=== PATIENT | female | born 1995 | race Caucasian/White ===

== ENCOUNTER 2017-04-01 18:53 | Emergency (ER) | payer OTHER ==
[~2017-04-01] VITALS: Ht 157.5 cm; Wt 93.0 kg
[2017-04-01 18:57] VITALS: Ht 157.5 cm; Wt 93.0 kg
--- NOTE | 2017-04-01 21:29 | ERD ---
ER Documentation Chief Complaint Date/Time DATE: 04/01/17 TIME: 21:23 Chief Complaint c/o rash to face and abd x 4 days. denies sob. 20 weeks . HPI 21 year old females presents to ED with CC of constant erythematous facial rash x 4 days, she states that she is 20 weeks . She reports associated pruritis. She denies any abdominal pain, pelvic pain, N/V, vaginal bleeding, SOB , facial/throat swelling, and difficulty swallowing. She states that rash began gradual and she denies no use of new topical products, medications or foods. She has no known allergies. She has not tried any medications for relief of Sx. No aggrevating or alleviating factors. ROS All systems reviewed and are negative except as per history of present illness. Medications Home Meds Active Scripts Diphenhydramine Hcl* (Benadryl*) 25 Mg Cap, 25 MG PO Q6, #30 CAP Prov:Mary Rowe PA-C 04/01/17 Hydrocortisone* Topical (Hydrocortisone* Topical) 1%-28.35 Gm Cream..g., 1 APPLIC TOP Q6 Y for ITCHING, #1 TUB Prov:Mary Rowe PA-C 04/01/17 PMhx/Soc Medical and Surgical Hx: pt denies Medical Hx, pt denies Surgical Hx Hx Psychiatric Problems: No Hx Miscellaneous Medical Probl: No Hx Alcohol Use: No Hx Substance Use: No Hx Tobacco Use: No Smoking Status: Never smoker Physical Exam Vitals Vital Signs Date Time Temp Pulse Resp B/P Pulse Ox O2 Delivery O2 Flow Rate FiO2 04/01/17 18:57 99.2 111 18 131/66 96 Physical Exam GENERAL: Non-toxic. No apparent signs of distress. HEENT: Atraumatic. Bilateral eyes are PERRL EOM intact. Normal conjunctiva, no injection. No eyelid or lower eyelid swelling noted. Ears: Normal tympanic membrane, no erythema or bulging. No ear canal swelling. No ear discharge. Nose : no nasal discharge. Throat: Oropharynx normal. Tongue pink and moist. Bilateral tonsillar erythema and edema, with no exudate. Uvula is midline. No drooling, no pooling of secretions, no trismus. No lymphadenopathy. LUNGS: Clear to auscultation. No accessory muscle use. No wheezing, no crackles. No signs or symptoms of respiratory distress. HEART: Regular rate and rhythm. No murmurs, clicks, rubs or gallops. ABDOMEN: Soft, nontender and nondistended. Bowel sounds positive. No rebound or guarding. No gross peritoneal signs. No [place] or McBurney point tenderness. No gross masses. BACK: No midline tenderness, no costovertebral tenderness. EXTREMITIES: No peripheral cyanosis or edema. No focal pain or notable trauma. Full range of motion. Good capillary refill. NEURO: The patient moves all 4 extremities with 5/5 strength. Cranial nerves are grossly intact. Normal mental status for age. Good muscle tone. SKIN: There is no apparent rash, petechiae, erythema or swelling. Good skin turgor. GENERAL: Non-toxic. No apparent signs of distress. Result Diagram: 04/01/17220504/01/172205 Results 24 hrs Laboratory Tests Test 04/01/17 22:06 White Blood Count 15.110^3/ul Red Blood Count 4.1410^6/ul Hemoglobin 11.5g/dl Hematocrit 34.7% Mean Corpuscular Volume 83.8fl Mean Corpuscular Hemoglobin 27.8pg Mean Corpuscular Hemoglobin Concent 33.1g/dl Red Cell Distribution Width 12.7% Platelet Count 65881^3/UL Mean Platelet Volume 11.0fl Neutrophils % 75.1% Lymphocytes % 17.2% Monocytes % 4.2% Eosinophils % 2.1% Basophils % 0.3% Nucleated Red Blood Cells % 0.0/100WBC Neutrophils # 11.410^3/ul Lymphocytes # 2.610^3/ul Monocytes # 0.610^3/ul Eosinophils # 0.310^3/ul Basophils # 0.010^3/ul Nucleated Red Blood Cells # 0.010^3/ul Sodium Level 134mmol/L Potassium Level 4.1mmol/L Chloride Level 101mmol/L Carbon Dioxide Level 24mmol/L Anion Gap 13 Blood Urea Nitrogen 3mg/dl Creatinine 0.44mg/dl Glucose Level 90mg/dl Calcium Level 9.4mg/dl Total Bilirubin 0.2mg/dl Direct Bilirubin 0.00mg/dl Indirect Bilirubin 0.2mg/dl Aspartate Amino Transf (AST/SGOT) 12IU/L Alanine Aminotransferase (ALT/SGPT) 18IU/L Alkaline Phosphatase 149IU/L Total Protein 7.6g/dl Albumin 4.1g/dl Globulin 3.50g/dl Albumin/Globulin Ratio 1.17 Lipase 63U/L Procedures/MDM Patient presented with erythematous rash only to her face x 4 days. She denies any respiratory Sx, she had no facial swelling or swelling in the oropharynx. She did have bilateral tonsillar erythema and edema, but she denied sore throat and had no exudate. She denied use of any new medications or topical products. I explained to the patient that rash may be atopic dermatitis that has developed in response to her skin being irritated by a product she is using on her face. May also be due to photosensitivity and suggested use of sunblock. However I told her I wanted to rule out strep associated rash due to her tonsillar edema and wished to get labs to rule out cholestasis since patient is in her second trimester and at higher risk for this. Patient agreed to plan, awaiting results prior to further management. Rapid Strep: negative CBC: leukocytosis and mild anemia likely due to related changes CMP: no severe electrolyte imbalance, normal kidney function, ALT and AST is normal but ALP is slightly elevated which is normal in as related to placenta growth. I explained the results to the patient, it is reassuring that her bilirubin is WNL, as well as her AST and ALT. ALP is mildly elevated which may be normal in . These results do not suggest cholestasis at this time. However I suggested close follow-up with her OBGYN in 1-2 days. I suggested short term use of 1% hydrocortisone, and avoid areas close to the eyes or mouth. In addition I suggested use of benadryl for the pruritus which is safe to use during . At this time I have low suspicion for cholestasis, anaphylaxis , angioedema, scabies, varicella, SJS, scarlet fever and cellulitis. Patient is stable for discharge home and outpatient management. Advised to follow-up with OBGYN in 1-2 days. Departure Diagnosis: Primary Impression: Rash Condition: Mary Alcantar PA-C April 01, 2017 21:29
[2017-04-01 22:24] LABS: ADD SCAN DIFF NO
[2017-04-01 22:25] LABS: BASOPHILS % 0.3 % (0.0-2.0); EOSINOPHILS # 0.3 10^3/ul (0.0-0.5); EOSINOPHILS % 2.1 % (0.0-7.0); HEMATOCRIT 34.7 % (37.0-47.0); HEMOGLOBIN 11.5 g/dl (12.0-16.0); LYMPHOCYTES # 2.6 10^3/ul (0.8-2.9); LYMPHOCYTES % 17.2 % (15.0-51.0); MEAN CORPUSCULAR HEMOGLOBIN 27.8 pg (29.0-33.0); MEAN CORPUSCULAR HGB CONC 33.1 g/dl (32.0-37.0); MEAN CORPUSCULAR VOLUME 83.8 fl (82.0-101.0); MONOCYTE # 0.6 10^3/ul (0.3-0.9); MONOCYTES % 4.2 % (0.0-11.0); NEUTROPHIL # 11.4 10^3/ul (1.6-7.5); NEUTROPHILS % 75.1 % (39.0-77.0); PLATELET COUNT 369 10^3/UL (140-415); RED BLOOD COUNT 4.14 10^6/ul (4.20-5.40); RED CELL DISTRIBUTION WIDTH 12.7 % (11.5-14.5); WHITE BLOOD COUNT 15.1 10^3/ul (4.8-10.8)
[2017-04-01 22:46] LABS: ALBUMIN 4.1 g/dl (3.3-4.9); ALBUMIN/GLOBULIN RATIO 1.17; BILIRUBIN,INDIRECT 0.2 mg/dl (0-1.1); BILIRUBIN,TOTAL 0.2 mg/dl (0.2-1.3); CALCIUM 9.4 mg/dl (8.4-10.2); CREATININE 0.44 mg/dl (0.44-1.00); POTASSIUM 4.1 mmol/L (3.5-5.1); TOTAL PROTEIN 7.6 g/dl (6.1-8.1)
[2017-04-01] MEDS ORDERED: HC1C30 TOP (23:03)
[2017-04-01] MEDS ORDERED: BEN25 PO (23:03)
== END 2017-04-01 23:26 | disposition home or self-care (01) ==
LOC: FTE 18:53
DX: O99.89 Other specified diseases and conditions complicating pregnancy, childbirth and the puerperium (principal); R21 Rash and other nonspecific skin eruption; Z3A.20 20 weeks gestation of pregnancy
CPT/HCPCS: 36415; 80053; 83690; 85025; 87880; 99283

== ENCOUNTER 2017-07-24 19:19 | Outpatient (CLI) | payer OTHER ==
[~2017-07-24] VITALS: Ht 160 cm; Wt 76.4 kg
[~2017-07-24 19:19] MED LIST: BEN25 PO; HC1C30 TOP
[2017-07-24 19:46] VITALS: BP 103/59; PULSE 87; RESP 18
[2017-07-24] MEDS ORDERED: PRENAT PO (19:49)
[2017-07-24 20:15] LABS: ADD UMIC YES; UR ASCORBIC ACID NEGATIVE (NEGATIVE); UR BILIRUBIN (Dip) NEGATIVE (NEGATIVE); UR BLOOD (Dip) NEGATIVE (NEGATIVE); UR CLARITY CLOUDY (CLEAR); UR COLOR YELLOW (YELLOW); UR GLUCOSE (Dip) NEGATIVE (NEGATIVE); UR KETONES (Dip) NEGATIVE (NEGATIVE); UR LEUKOCYTE ESTERASE (Dip) 3+ Leu/ul (NEGATIVE); UR NITRITE (Dip) NEGATIVE (NEGATIVE); UR RBC 4 /HPF (0-5); UR SPECIFIC GRAVITY (Dip) 1.008 (1.003-1.030); UR SQUAMOUS EPITHELIAL CELL MODERATE /HPF (FEW); UR TOTAL PROTEIN (Dip) NEGATIVE (NEGATIVE); UR UROBILINOGEN (Dip) NEGATIVE (NEGATIVE)
--- NOTE | 2017-07-24 21:08 | RADRPT ---
PROCEDURE: Obstetrical ultrasound greater than 14 weeks CLINICAL INDICATION: labor TECHNIQUE: Real time sonographic imaging of the gravid uterus is performed transabdominally and mu ltiple static velazco scale and Doppler images are submitted for review as are measurements. The image s are reviewed on the PACS. COMPARISON: No relevant exams are available FINDINGS: There is a single living intrauterine gestation in cephalic presentation. The heart beat is estimated at 126 bpm. The measurements are as follows: BPD:9.09 cm HC:32.48 cm AC:32.57 cm FL:6.84 cm Estimated gestational age is 36 weeks 2 days. The estimated date of delivery is 08/19/2017. The estimated weight is 2880 grams. Placenta is left lateral and grade2. There is no evidence of placenta previa or abruption. RPTAT:HJJR IMPRESSION: 1. Single viable intrauterine gestation in cephalic presentation estimated at 36 weeks 2 days with t he estimated date of delivery 08/19/2017. 2. Estimated weight 2880 g. Physician Yvette Date Time Electronically viewed and signed by Physician Yvette on 07/24/2017 21:08 JR/
--- NOTE | 2017-07-24 21:15 | RADRPT ---
PROCEDURE: Obstetrical ultrasound for biophysical profile CLINICAL INDICATION: Biophysical profile. . TECHNIQUE: Obstetrical ultrasound of the uterus for biophysical profile. Transabdominal views are obtained. COMPARISON: 04/09/2017 FINDINGS: Single intrauterine gestation. Presentation: Cephalic. Placenta: Posterior - left lateral No evidence of placental abruption. No evidence of placenta previa. breathing movement = 2/2 tone = 2/2 motion = 2/2 YESSICA = 2/2 YESSICA = 17.0 cm heart rate: 135 beats per minute IMPRESSION: Single intrauterine gestation. Biophysical profile 07/02 RPTAT: AADD .Kirk Galdamez MD, MD Date Time Electronically viewed and signed by .Kirk Galdamez MD, on 07/24/2017 21:15 .B/
--- NOTE | 2017-07-24 22:48 | TRIAGE ---
OB Triage Datetime Report Generated by CPN: 07/24/2017 22:48 Datetime: 07/24/2017 22:00 Stage of : OB Triage Datetime: 07/24/2017 21:56 Stage of : OB Triage Datetime: 07/24/2017 21:49 Stage of : OB Triage Monitor Mode: External Quality: Mild Pattern: Normal: <= 5 Contractions in 10 Minutes Resting Tone [place]: Relaxed Heart Rate FHR Baseline Rate: 145 Monitor Mode: External US Variability: Moderate 6-25 bpm Accelerations: 15X15 Decelerations: None Category: Category I Pain Assessment Pain Scale: 2 Pain Presence: Intermittent Pain Type: Cramping Pain Location: Abdomen Vaginal Exam Dilatation (cms): 1.0 Effacement (%): 50 Station: -3 Exam By: Nina Orosco Membrane Status: Intact Vaginal Bleeding: None Cervix, Consistency: Moderate Cervix, Position: Posterior Presentation 'A': Cephalic Datetime: 07/24/2017 20:58 Stage of : OB Triage Monitor Mode: External Quality: Mild Pattern: Normal: <= 5 Contractions in 10 Minutes Resting Tone [place]: Relaxed Heart Rate FHR Baseline Rate: 140 Monitor Mode: External US FHR Baseline Changes: No Baseline Change Variability: Moderate 6-25 bpm Accelerations: 15X15 Decelerations: None Category: Category I Datetime: 07/24/2017 20:07 Monitor Mode: External Quality: Mild Pattern: Normal: <= 5 Contractions in 10 Minutes Resting Tone [place]: Relaxed Heart Rate FHR Baseline Rate: 135 Monitor Mode: External US FHR Baseline Changes: No Baseline Change Variability: Moderate 6-25 bpm Accelerations: 15X15 Decelerations: None Category: Category I Datetime: 07/24/2017 19:40 Stage of : OB Triage Heart Rate FHR Baseline Rate: 135 Monitor Mode: External US FHR Baseline Changes: No Baseline Change Variability: Moderate 6-25 bpm Accelerations: 15X15 Decelerations: None Category: Category I Datetime: 07/24/2017 19:32 EGA: 35.3 Datetime: 07/24/2017 19:30 Time of Arrival: 07/24/2017 19:11 Arrived By: Wheelchair Arrived From: Home Chief Complaint: c/o ucs. States was 2cm at 1100 per u/s at clinic Movement: Present Contractions: Irregular Time Contractions Began: 07/24/2017 18:00 Contractions: q10 Rupture of Membranes: Denies Vaginal Bleeding: None Vaginal Discharge: Denies Recent Sexual Intercouse: Denies Abdominal Trauma: Not Applicable Patient Complaints: Contractions Time Provider Notified: 07/24/2017 19:40 Provider Notified: Dr Franklin Initial Plan: EF,.EFW,BPP,SVE,UA Datetime: 07/24/2017 19:27 Stage of : OB Triage Maternal Assessment Level of Consciousness: Fully Conscious Headache: Denies Blurred Vision: No Respiratory Effort: Unlabored Nausea/Vomiting: Denies RUQ Epigastric Pain: Denies Facial Edema: None Labor Evaluation Frequency: placed Monitor Mode: External Resting Tone [place]: Relaxed Heart Rate FHR Baseline Rate: 150 Monitor Mode: External US Pain Assessment Pain Scale: 6 Pain Presence: Intermittent Pain Type: Cramping Pain Location: Abdomen
--- NOTE | 2017-07-25 07:31 | HP ---
Date/Time of Note Date/Time of Note DATE: 07/25/17 TIME: 07:23 OB - History Hx of Present Free Text/Dictation Jul 25, 2017 : 2 Para: 1 Spontaneous : 0 Care: Good Care Other Concerns: 21-year-old with IUP at 35 weeks and 3 days here today , r/o PTL . She was noted to be 1 cm long and -3.in exam. She had been observed after hydration in triage and noted to have no cervical change. Of note that patient had ultrasound today and doing ultrasound noted to have 2 cm cervical dilatation for that reason patient presented to here. patient denied having any contractions, leaking of fluid or vaginal bleeding or decreased movement. Past Family/Social History * Past Medical, Surgical, Family and Obstetric Histories reviewed from chart. OB Admission Exam Vital Signs Vital Signs Vital Signs Date Time Temp Pulse Resp B/P Pulse Ox O2 Delivery O2 Flow Rate FiO2 07/24/17 19:46 98.0 87 18 103/59 Room Air Physical Exam HEENT: WNL Lungs: Clear Effacement: 0% Station: -1 Membranes: Intact Heart Rate: 130's Accelerations: Accelerations Present Decelerations: No Decelerations Varibility: Moderate Contractions on Admission: >10 Minutes Apart Intensity: Mild OB Assessment/Plan Other Assessment: IUP at 35 weeks and 3 days No evidence of labor Doing well Tracing reassuring Will be discharged home with strict labor precaution and kick counts Follow-up within 24-48 hours with primary OB office recommended Verbalized understanding SHAMIKA FERRELL MD Jul 25, 2017 07:31
== END 2017-07-24 22:13 | disposition home or self-care (01) ==
LOC: OBT 19:19 → L-D 19:21 → OBT 22:13
PROVIDERS: ATTEND Obstetrics & Gynecology
DX: O47.03 False labor before 37 completed weeks of gestation, third trimester (principal); Z3A.35 35 weeks gestation of pregnancy
CPT/HCPCS: 76815; 76818; 81001; G0463

== ENCOUNTER 2017-07-26 20:05 | Inpatient (IN) | payer OTHER ==
[~2017-07-26] VITALS: Ht 153.7 cm; Wt 75.4 kg
[~2017-07-26 20:05] MED LIST changes: -BEN25 PO; -HC1C30 TOP; +PRENAT PO
[2017-07-26 20:50] VITALS: BP 114/58; PULSE 101; RESP 18
[2017-07-26 21:05] LABS: ADD UMIC YES; UR ASCORBIC ACID 20 mg/dL (NEGATIVE); UR BACTERIA FEW /HPF (NONE SEEN); UR BILIRUBIN (Dip) NEGATIVE (NEGATIVE); UR BLOOD (Dip) NEGATIVE (NEGATIVE); UR CLARITY CLOUDY (CLEAR); UR COLOR AMBER (YELLOW); UR GLUCOSE (Dip) NEGATIVE (NEGATIVE); UR KETONES (Dip) TRACE mg/dL (NEGATIVE); UR LEUKOCYTE ESTERASE (Dip) 3+ Leu/ul (NEGATIVE); UR MUCUS FEW /HPF (NONE SEEN); UR NITRITE (Dip) NEGATIVE (NEGATIVE); UR RBC 9 /HPF (0-5); UR SPECIFIC GRAVITY (Dip) 1.019 (1.003-1.030); UR SQUAMOUS EPITHELIAL CELL MODERATE /HPF (FEW); UR TOTAL PROTEIN (Dip) 1+ mg/dl (NEGATIVE); UR UROBILINOGEN (Dip) 1+ mg/dL (NEGATIVE)
--- NOTE | 2017-07-26 23:14 | HP ---
Date/Time of Note Date/Time of Note DATE: 07/26/17 TIME: 23:03 OB - History Hx of Present Free Text/Dictation 21 y.o at 35w5d here for c/o backahe and lower abdominal pain since yesterday 1600. she was here on 07/24/17 sent heome with medication for UTI but wasn't compliant ,took only one pill also patient had x1 vomiting today denies any febrile episodes EFM revealed uc 2-4 min apart tracing reactive U/A abnormal rt CVA +tenderness admitted for IV hydration with antibiotics and also BMZx2 Chief Complaint: backache Estimated Due Date: Aug 25, 2017 : 2 Para: 1 Spontaneous : 0 Therapeutic : 0 Care: Other Ultrasounds: Other Obstetrical Complications: None Medical Complications: None Past Family/Social History * Past Medical, Surgical, Family and Obstetric Histories reviewed from chart. Blood Type: Unknown Rubella: unknown RPR/VDRL: Unknown GBS Status: Unknown HBsAG: Unknown OB Admission Exam Vital Signs Vital Signs Vital Signs Date Time Temp Pulse Resp B/P Pulse Ox O2 Delivery O2 Flow Rate FiO2 07/26/17 20:50 97.8 101 18 114/58 Room Air Physical Exam HEENT: WNL Heart: Rhythm Normal Lungs: Clear, Equal Abdomen: WNL Extremities: Normal Reflexes: Normal Cervical Dilatation: 1cm Effacement: 50% Station: -3 Membranes: Intact Amniotic Fluid: Unevaluable Heart Rate: 140's Accelerations: Accelerations Present Decelerations: No Decelerations Varibility: Moderate Contractions on Admission: < 5 Minutes Apart OB Assessment/Plan Reason for admission: labor Other Assessment: [id number] UTI Other plan: IV hydration with rocephin BMZx2 MINDY ROSE MD Jul 26, 2017 23:13
[2017-07-26] MEDS ORDERED: AL HYDROX/MG HYDROX/SIMETH 30 ML CUP PO PRN (23:30)
[2017-07-27] MEDS: SOD CHLORIDE 0.9% 1,000 ML IV SCH ×4 (00:29→20:03)
[2017-07-27] MEDS: CEFTRIAXONE 1 GM/50 ML (PMX) 50 ML IVPB SCH (00:51)
[2017-07-27] MEDS: BETAMET NA PHOS/AC(6 MG/ML) 5ML INJ IM SCH (00:52)
[2017-07-27] MEDS: ACETAMINOPHEN 325 MG TAB PO PRN ×3 (02:52→20:03)
[2017-07-27 03:04] LABS: BASOPHILS % 0.3 % (0.0-2.0); EOSINOPHILS # 0.1 10^3/ul (0.0-0.5); EOSINOPHILS % 0.9 % (0.0-7.0); HEMOGLOBIN 10.2 g/dl (12.0-16.0); LYMPHOCYTES # 2.6 10^3/ul (0.8-2.9); LYMPHOCYTES % 20.6 % (15.0-51.0); MEAN CORPUSCULAR HEMOGLOBIN 27.2 pg (29.0-33.0); MEAN CORPUSCULAR HGB CONC 32.9 g/dl (32.0-37.0); MEAN CORPUSCULAR VOLUME 82.7 fl (82.0-101.0); MEAN PLATELET VOLUME 11.6 fl (7.4-10.4); MONOCYTE # 0.8 10^3/ul (0.3-0.9); MONOCYTES % 6.3 % (0.0-11.0); NEUTROPHILS % 69.8 % (39.0-77.0); PLATELET COUNT 323 10^3/UL (140-415); RED BLOOD COUNT 3.75 10^6/ul (4.20-5.40); RED CELL DISTRIBUTION WIDTH 13.5 % (11.5-14.5); WHITE BLOOD COUNT 12.7 10^3/ul (4.8-10.8)
[2017-07-27 03:23] LABS: INR 0.98
[2017-07-27 03:24] LABS: PARTIAL THROMBOPLASTIN TIME 28.8 Sec (25.0-35.0)
[2017-07-27] MEDS: PRENATAL VITAMIN PO SCH (10:18)
[2017-07-27] MEDS: FERROUS SULFATE (EC) 325 MG TAB PO SCH (10:18)
--- NOTE | 2017-07-27 18:52 | QN ---
Documentation Comment July 27, 2017 Hospital ground .This patient is a 21 years old 2 para 1 around 35 weeks and 6 days who came to the hospital yesterday complaining of lower abdominal pain and back pain since the day before she was also seen on the July 24 and with a diagnosis of urinary tract infection she was going Macrobid 100 mg to be taken as needed but apparently patient just took 1 and did not continue the medication. On examination her abdomen is fairly soft basically no contractions heart tone is normal with good variation and acceleration no evidence of decelerations. Laboratory Tests Test 07/26/17 20:15 07/27/17 00:29 Urine Color TIFFANI Urine Clarity CLOUDY Urine pH 6.0 Urine Specific [place] 1.019 Urine Ketones TRACEmg/dL Urine Nitrite NEGATIVEmg/dL Urine Bilirubin NEGATIVEmg/dL Urine Urobilinogen 1+mg/dL Urine Leukocyte Esterase 3+Sandra/ul Urine Microscopic RBC 9/HPF Urine Microscopic WBC 119/HPF Urine Squamous Epithelial Cells MODERATE/HPF Urine Bacteria FEW/HPF Urine Mucus FEW/HPF Urine Hemoglobin NEGATIVEmg/dL Urine Glucose NEGATIVEmg/dL Urine Total Protein 1+mg/dl White Blood Count 12.710^3/ul Red Blood Count 3.7510^6/ul Hemoglobin 10.2g/dl Hematocrit 31.0% Mean Corpuscular Volume 82.7fl Mean Corpuscular Hemoglobin 27.2pg Mean Corpuscular Hemoglobin Concent 32.9g/dl Red Cell Distribution Width 13.5% Platelet Count 50887^3/UL Mean Platelet Volume 11.6fl Neutrophils % 69.8% Lymphocytes % 20.6% Monocytes % 6.3% Eosinophils % 0.9% Basophils % 0.3% Nucleated Red Blood Cells % 0.0/100WBC Neutrophils # (Manual) 8.810^3/ul Lymphocytes # 2.610^3/ul Monocytes # 0.810^3/ul Eosinophils # 0.110^3/ul Basophils # 0.010^3/ul Nucleated Red Blood Cells # 0.010^3/ul Prothrombin Time 13.0Sec Prothrombin Time Ratio 1.0 INR International Normalized Ratio 0.98 Activated Partial Thromboplast Time 28.8Sec Rapid Plasma Reagin NONREACTIVE Current Medications Medications (Trade) Dose Ordered Sig/Christen Route PRN Reason Start Time Stop Time Status Last Admin Dose Admin Sodium Chloride (NS) 1,000 ml @ 125 mls/hr Q8H IV 07/26/17 23:02 07/27/17 12:50 Betamethasone Acet/Betameth SodPhos ([place] Soluspan) 12 mg Q24H IM 07/26/17 23:30 07/27/17 23:31 07/27/17 00:52 Prenat Multivit/ [place]/Iron/Folic Ac () 1 tab DAILY PO 07/27/17 09:00 07/27/17 10:18 Ferrous Sulfate (Ferrous Sulfate (Ec)) 325 mg DAILY PO 07/27/17 09:00 07/27/17 10:18 Acetaminophen (Tylenol Tab) 650 mg Q4H PRN PO PAIN AND OR ELEVATED TEMP 07/26/17 23:30 07/27/17 07:58 Al Hydrox/Mg Hydrox/ Simethicone 30 ml 30 ml Q6H PRN PO GASTROINTESTINAL UPSET 07/26/17 23:30 Ceftriaxone Sodium (Rocephin) 50 ml @ 100 mls/hr Q24H IVPB 07/26/17 23:30 07/27/17 00:51 She was given a gram of Rocephin which will be repeated again today ..She was also was given betamethasone and 1 dose and will be given again another dose today .Her diagnosis is basically inconclusive anyway we will keep her here for continued antibiotic and monitor heart tone and will check with the results of the urine culture MATT GAMA MD Jul 27, 2017 18:52
[2017-07-28] MEDS: CEFTRIAXONE 1 GM/50 ML (PMX) 50 ML IVPB SCH (00:01)
[2017-07-28] MEDS: BETAMET NA PHOS/AC(6 MG/ML) 5ML INJ IM SCH (00:01)
[2017-07-28] MEDS: SOD CHLORIDE 0.9% 1,000 ML IV SCH ×2 (04:32→13:03)
[2017-07-28] MEDS: FERROUS SULFATE (EC) 325 MG TAB PO SCH (08:52)
[2017-07-28] MEDS: PRENATAL VITAMIN PO SCH (08:52)
[2017-07-28] MEDS: ACETAMINOPHEN 325 MG TAB PO PRN (10:26)
--- NOTE | 2017-07-28 15:33 | PDOCDIS ---
Discharge Instructions CONDITION Patient Condition: Good HOME CARE INSTRUCTIONS: Diet Instructions: Regular ACTIVITY: Activity Restrictions: No Sexual Activity Bathing Restrictions: Shower FOLLOW UP/APPOINTMENTS Follow-up Plan follow up clinic in 5 days REFERRALS Agency Name and Phone Number: [facility] OTHER ORDERS: Other Orders: pt received a RX MACROBID ,1 TAB BID,TO BE SEEN AT THE CLINIC IN 4 TO 5 DAYS CINDI TONY MD Jul 28, 2017 15:33
--- NOTE | 2017-07-28 15:43 | DS ---
Date/Time of Note Date/Time of Note DATE: 07/28/17 TIME: 15:34 Discharge Summary Admission/Discharge Info Admit Date/Time Jul 26, 2017 at 23:31 Discharge Date/Time JUL 28 2017, AT 15:34 Patient Condition: Good Procedures ANTIBIOTIC TREATMENT FOR SUSPECTED UTI Hx of Present Illness 36 WEEKS ,LOW BACK PAIN SUSPECTED UTI ,URINE CULTURE NEGATIVE STAPHYLOCOCCUS MOST LIKELY CONTAMINATION Hospital Course SATISFACTORY RECOVERY Home Meds Reported Medications Multivit/Min/Fol Ac/Iron/Pren* ( S*) 1 Tab Tab, 1 TAB PO DAILY, TAB 07/24/17 Discontinued Scripts Diphenhydramine Hcl* (Benadryl*) 25 Mg Cap, 25 MG PO Q6, #30 CAP Prov:Mary Rowe PA-C 04/01/17 Hydrocortisone* Topical (Hydrocortisone* Topical) 1%-28.35 Gm Cream..g., 1 APPLIC TOP Q6 Y for ITCHING, #1 TUB Prov:Mary Rowe PA-C 04/01/17 Follow-up Plan RX MACROBID ,REC.TO MAKE TO MAKE APPOINTMENT IN 3 TO 4 DAYS .TO BE SEEN AT THE CLINIC Primary Care Provider Lorna Mendoza Time spent on discharge: < 30 minutes CINDI TONY MD Jul 28, 2017 15:43
== END 2017-07-28 16:35 | disposition home or self-care (01) | DRG 781 ==
LOC: OBT 20:05 → L-D 20:07 → OBT 23:30 → OBG 23:31
PROVIDERS: ADMIT Obstetrics & Gynecology; ATTEND Obstetrics & Gynecology
DX: O23.43 Unspecified infection of urinary tract in pregnancy, third trimester (principal); Z3A.35 35 weeks gestation of pregnancy
CPT/HCPCS: 81001; 85025; 85610; 85730; 86592; 86900; 86901; 87086; G0463; J0696; J0702; J7030

== ENCOUNTER 2017-08-13 17:09 | Outpatient (CLI) | payer OTHER ==
[~2017-08-13] VITALS: Ht 154.9 cm; Wt 76.4 kg
[2017-08-13 17:43] VITALS: Ht 154.9 cm; Wt 76.4 kg
[2017-08-13 17:44] VITALS: BP 112/62; PULSE 88; RESP 18
--- NOTE | 2017-08-13 18:53 | RADRPT ---
PROCEDURE: US biophysical profile. CLINICAL INDICATION: Labor. well-being. TECHNIQUE: Multiple sonographic images of the uterus were obtained. The images were revi ewed on a PACS workstation. COMPARISON: No prior studies are available for comparison. FINDINGS: There is a single live intrauterine gestation. heart rate is 161 beats per minute. The position is cephalic. The placenta is posterior fundal, grade II. The YESSICA is 12.3 cm. Breathing Movement: 2 Gross Body Movement: 2 Tone: 2 Qualitative Amniotic Fluid Volume: 2 TOTAL: 8 IMPRESSION: 1. Single viable intrauterine gestation. 2. Biophysical profile = /8. 3. YESSICA = 12.3 cm. RPTAT: HH .Alejandro Gibson MD, MD Date Time Electronically viewed and signed by .Alejandro Gibson MD, MD on 08/13/2017 18:53 .N/
[2017-08-13] MEDS ORDERED: PROCHLORPERAZINE 10 MG INJ IM ONE (20:30)
[2017-08-13] MEDS ORDERED: morphine 10 MG INJ IM ONE (20:30)
--- NOTE | 2017-08-13 21:49 | TRIAGE ---
OB Triage Datetime Report Generated by CPN: 08/13/2017 21:48 Datetime: 08/13/2017 20:06 Labor Evaluation Frequency: 2-4 Monitor Mode: External Duration (sec)2399: 50-90 Pattern: Normal: <= 5 Contractions in 10 Minutes Resting Tone [place]: Relaxed Heart Rate FHR Baseline Rate: 130 Monitor Mode: External US Variability: Moderate 6-25 bpm Accelerations: 15X15 Decelerations: None Category: Category I Datetime: 08/13/2017 19:41 Monitor Mode: Palpation Quality: Mild Datetime: 08/13/2017 19:40 Pain Assessment Pain Scale: 9 Pain Presence: Intermittent Pain Type: Cramping; Contraction Pain Location: Abdomen; Back Vaginal Exam Dilatation (cms): 2.0 Effacement (%): 50 Station: -3 Exam By: Mal Bush RN Vaginal Bleeding: None Cervix, Consistency: Soft Cervix, Position: Posterior Presentation 'A': Cephalic Datetime: 08/13/2017 19:32 Stage of : OB Triage Maternal Assessment Level of Consciousness: Fully Conscious DTR's/Clonus: DTRs 1+ Headache: Denies Breath Sounds, Left: Clear and Equal Breath Sounds, Right: Clear and Equal Nausea/Vomiting: Denies RUQ Epigastric Pain: Denies Labor Evaluation Frequency: 2-6 Monitor Mode: External Duration (sec)2399: 50-70 Quality: Mild Pattern: Normal: <= 5 Contractions in 10 Minutes Resting Tone [place]: Relaxed Heart Rate FHR Baseline Rate: 145 Monitor Mode: External US Variability: Moderate 6-25 bpm Accelerations: 15X15 Decelerations: None Category: Category I Pain Assessment Pain Scale: 5 Pain Presence: Intermittent Pain Type: Contraction Pain Location: Back Pain Goal: 3 Pain Relief Measures: Pain Medication Given Datetime: 08/13/2017 19:06 Stage of : OB Triage Maternal Assessment Level of Consciousness: Fully Conscious DTR's/Clonus: DTRs 1+ Headache: Denies Breath Sounds, Left: Clear and Equal Breath Sounds, Right: Clear and Equal Nausea/Vomiting: Denies RUQ Epigastric Pain: Denies Labor Evaluation Frequency: 2-6 Monitor Mode: External Duration (sec)2399: 50-70 Quality: Mild Pattern: Normal: <= 5 Contractions in 10 Minutes Resting Tone [place]: Relaxed Heart Rate FHR Baseline Rate: 145 Monitor Mode: External US Variability: Moderate 6-25 bpm Accelerations: 15X15 Decelerations: None Category: Category I Pain Assessment Pain Scale: 5 Pain Presence: Intermittent Pain Type: Contraction Pain Location: Back Pain Goal: 3 Pain Relief Measures: Pain Medication Given Datetime: 08/13/2017 18:19 Maternal Assessment Level of Consciousness: Fully Conscious DTR's/Clonus: DTRs 1+ Headache: Denies Blurred Vision: No Respiratory Effort: Unlabored Breath Sounds, Left: Clear and Equal Breath Sounds, Right: Clear and Equal Nausea/Vomiting: Denies RUQ Epigastric Pain: Denies Facial Edema: None Labor Evaluation Frequency: 2-6 Monitor Mode: External Duration (sec)2399: 50-70 Quality: Mild Pattern: Normal: <= 5 Contractions in 10 Minutes Resting Tone [place]: Relaxed Heart Rate FHR Baseline Rate: 145 Monitor Mode: External US Variability: Moderate 6-25 bpm Accelerations: 15X15 Decelerations: None Category: Category I Pain Assessment Pain Scale: 5 Pain Presence: Intermittent Pain Type: Contraction Pain Location: Back Pain Goal: 3 Pain Relief Measures: Pain Medication Given Datetime: 08/13/2017 18:12 Stage of : OB Triage Maternal Assessment Level of Consciousness: Fully Conscious DTR's/Clonus: DTRs 1+ Headache: Denies Breath Sounds, Left: Clear and Equal Breath Sounds, Right: Clear and Equal RUQ Epigastric Pain: Denies Labor Evaluation Frequency: 2-7 Monitor Mode: External Duration (sec)2399: 40-50 Quality: Mild Pattern: Normal: <= 5 Contractions in 10 Minutes Resting Tone [place]: Relaxed Heart Rate FHR Baseline Rate: 135 Monitor Mode: External US Variability: Moderate 6-25 bpm Accelerations: 15X15 Decelerations: None Category: Category I Pain Assessment Pain Scale: 5 Pain Presence: Intermittent Pain Type: Contraction Pain Location: Abdomen; Back Pain Goal: 3 Pain Relief Measures: Comfort Measures Datetime: 08/13/2017 17:47 Maternal Assessment Level of Consciousness: Fully Conscious DTR's/Clonus: DTRs 1+ Headache: Denies Blurred Vision: No Respiratory Effort: Unlabored Breath Sounds, Left: Clear and Equal Breath Sounds, Right: Clear and Equal RUQ Epigastric Pain: Denies Facial Edema: None Labor Evaluation Frequency: 2-7 Monitor Mode: External Duration (sec)2399: 40-50 Quality: Mild Pattern: Normal: <= 5 Contractions in 10 Minutes Resting Tone [place]: Relaxed Heart Rate FHR Baseline Rate: 135 Monitor Mode: External US Variability: Moderate 6-25 bpm Accelerations: 15X15 Decelerations: None Category: Category I Pain Assessment Pain Scale: 5 Pain Presence: Intermittent Pain Type: Contraction Pain Location: Abdomen; Back Pain Goal: 3 Pain Relief Measures: Comfort Measures Datetime: 08/13/2017 17:44 Vaginal Exam Dilatation (cms): 2.0 Effacement (%): 50 Station: -3 Exam By: NILDA STERLING Vaginal Bleeding: None Cervix, Consistency: Soft Cervix, Position: Posterior Presentation 'A': Cephalic Datetime: 08/13/2017 17:15 Assessment Type: Triage Maternal Assessment Level of Consciousness: Fully Conscious DTR's/Clonus: DTRs 2+; No Clonus Headache: Denies Blurred Vision: No Respiratory Effort: Unlabored; Regular Rhythm; Equal Expansion Breath Sounds, Left: Clear and Equal Breath Sounds, Right: Clear and Equal Nausea/Vomiting: Denies RUQ Epigastric Pain: Denies Lower Extremities Edema: None Degree: None Upper Extremities Edema: None Degree: None Facial Edema: None Fall Risk Assessment History of Falling: (0) No Secondary Diagnosis: (0) No Ambulatory Aid: (0) Bedrest/Nurse Assist IV Therapy: (0) No Gait: (0) Normal/Bedrest/Immobile Mental Status: (0) Oriented to Own Ability Fall Score: 0 Fall Risk Score Definition: No Risk: No action required Datetime: 08/13/2017 17:05 Time of Arrival: 08/13/2017 17:05 EGA: 38.2 Arrived By: Ambulatory Arrived From: Home Chief Complaint: PT CAME IN C/O UC'S Movement: Present Contractions: Regular Time Contractions Began: 08/13/2017 13:00 Rupture of Membranes: Denies Vaginal Discharge: Denies Recent Sexual Intercouse: Denies Abdominal Trauma: Not Applicable Additional Patient Complaints: NONE Time Provider Notified: 08/13/2017 17:47 Provider Notified: DELSHAD Initial Plan: MONITOR AND VE, BPP Datetime: 07/28/2017 15:21 Labor Evaluation Frequency: irregular Monitor Mode: External Duration (sec)2399: 50 Quality: Mild Resting Tone [place]: Relaxed Contraction Comments: denies feeling contractions Heart Rate FHR Baseline Rate: 140 Monitor Mode: External US FHR Baseline Changes: No Baseline Change Variability: Moderate 6-25 bpm Accelerations: 15X15 Decelerations: None Category: Category I Datetime: 07/28/2017 15:00 Labor Evaluation Frequency: x6 Monitor Mode: External Duration (sec)2399: 50 Quality: Mild Resting Tone [place]: Relaxed Contraction Comments: denies feeling contractions. Heart Rate FHR Baseline Rate: 140 Monitor Mode: External US FHR Baseline Changes: No Baseline Change Variability: Moderate 6-25 bpm Accelerations: 15X15 Decelerations: None Category: Category I Pain Assessment Pain Scale: 0 Pain Presence: None/Denies Pain Type: N/A Datetime: 07/28/2017 14:00 Labor Evaluation Frequency: x3 Monitor Mode: External Duration (sec)2399: 50 Quality: Mild Resting Tone [place]: Relaxed Heart Rate FHR Baseline Rate: 140 Monitor Mode: External US FHR Baseline Changes: No Baseline Change Variability: Moderate 6-25 bpm Accelerations: 15X15 Decelerations: None Datetime: 07/28/2017 13:00 Labor Evaluation Frequency: x1 Monitor Mode: External Duration (sec)2399: 100 Quality: Mild Resting Tone [place]: Relaxed Heart Rate FHR Baseline Rate: 140 Monitor Mode: External US FHR Baseline Changes: No Baseline Change Variability: Moderate 6-25 bpm Accelerations: 15X15 Decelerations: None Category: Category I Datetime: 07/28/2017 12:05 Stage of : Antepartum (Annotations: Data stored by CPN on behalf of user) Datetime: 07/28/2017 12:00 Labor Evaluation Frequency: 0 Monitor Mode: External Resting Tone [place]: Relaxed Heart Rate FHR Baseline Rate: 120 Monitor Mode: External US FHR Baseline Changes: No Baseline Change Variability: Moderate 6-25 bpm Accelerations: 15X15 Decelerations: None Category: Category I Pain Assessment Pain Scale: 0 Pain Presence: None/Denies Pain Type: N/A Pain Assessment Comments: pain medication given Datetime: 07/28/2017 11:56 Stage of : Antepartum Temperature Route: Oral Datetime: 07/28/2017 11:55 Stage of : Antepartum Datetime: 07/28/2017 11:10 Stage of : Antepartum Datetime: 07/28/2017 11:00 Labor Evaluation Frequency: 0 Monitor Mode: External Resting Tone [place]: Relaxed Heart Rate FHR Baseline Rate: 130 Monitor Mode: External US FHR Baseline Changes: Bradycardia Variability: Moderate 6-25 bpm Accelerations: 15X15 Decelerations: None Category: Category I Datetime: 07/28/2017 10:21 Pain Presence: Constant Pain Type: Ache Pain Location: Back; Head Pain Relief Measures: Comfort Measures Pain Assessment Comments: Requested pain medication Datetime: 07/28/2017 10:00 Labor Evaluation Frequency: 0 Monitor Mode: External Resting Tone [place]: Relaxed Heart Rate FHR Baseline Rate: 120 Monitor Mode: External US Variability: Moderate 6-25 bpm Accelerations: 15X15 Decelerations: None Category: Category I Pain Assessment Pain Scale: 3 Pain Presence: Constant Pain Type: Ache Pain Location: Back; Head Pain Goal: 0 Pain Relief Measures: Comfort Measures Datetime: 07/28/2017 09:00 Labor Evaluation Frequency: 0 Monitor Mode: External Resting Tone [place]: Relaxed Heart Rate FHR Baseline Rate: 120 Monitor Mode: External US FHR Baseline Changes: No Baseline Change Variability: Moderate 6-25 bpm Accelerations: 15X15 Decelerations: None Category: Category I Pain Assessment Pain Scale: 2 Pain Presence: Constant Pain Type: Ache Pain Location: Back; Head Datetime: 07/28/2017 08:00 Labor Evaluation Frequency: x2 Monitor Mode: External Duration (sec)2399: 70 Quality: Mild Resting Tone [place]: Relaxed Heart Rate FHR Baseline Rate: 115 Monitor Mode: External US FHR Baseline Changes: No Baseline Change Variability: Moderate 6-25 bpm Accelerations: 15X15 Decelerations: None Category: Category I Datetime: 07/28/2017 07:40 Assessment Type: Ongoing Assessment Maternal Assessment Level of Consciousness: Fully Conscious DTR's/Clonus: DTRs 2+; No Clonus Headache: Denies Blurred Vision: No Respiratory Effort: Unlabored; Regular Rhythm; Equal Expansion Breath Sounds, Left: Clear and Equal Breath Sounds, Right: Clear and Equal Nausea/Vomiting: Denies RUQ Epigastric Pain: Denies Lower Extremities Edema: None Degree: None Upper Extremities Edema: None Degree: None Facial Edema: None Fall Risk Assessment History of Falling: (0) No Secondary Diagnosis: (0) No Ambulatory Aid: (0) Bedrest/Nurse Assist IV Therapy: (20) Yes Gait: (0) Normal/Bedrest/Immobile Mental Status: (0) Oriented to Own Ability Fall Score: 20 Fall Risk Score Definition: No Risk: No action required Datetime: 07/28/2017 07:37 Temperature Route: Oral Pain Assessment Pain Scale: 0 Pain Presence: None/Denies Pain Type: N/A Pain Goal: 0 Datetime: 07/28/2017 07:00 Labor Evaluation Frequency: x1 Monitor Mode: External Duration (sec)2399: 50 Quality: Mild Resting Tone [place]: Relaxed Contraction Comments: pt without complaint of uc pain. Heart Rate FHR Baseline Rate: 125 Monitor Mode: External US FHR Baseline Changes: No Baseline Change Variability: Moderate 6-25 bpm Accelerations: 15X15 Decelerations: None Category: Category I Datetime: 07/28/2017 06:00 Labor Evaluation Frequency: none Monitor Mode: External Resting Tone [place]: Relaxed Heart Rate FHR Baseline Rate: 115 Monitor Mode: External US FHR Baseline Changes: No Baseline Change Variability: Moderate 6-25 bpm Accelerations: 15X15 Decelerations: None Category: Category I Datetime: 07/28/2017 05:00 Labor Evaluation Frequency: none Monitor Mode: External Resting Tone [place]: Relaxed Heart Rate FHR Baseline Rate: 115 Monitor Mode: External US FHR Baseline Changes: No Baseline Change Variability: Moderate 6-25 bpm Accelerations: 15X15 Decelerations: None Category: Category I Datetime: 07/28/2017 04:00 Labor Evaluation Frequency: none Monitor Mode: External Resting Tone [place]: Relaxed Heart Rate FHR Baseline Rate: 110 Monitor Mode: External US FHR Baseline Changes: No Baseline Change Variability: Moderate 6-25 bpm Accelerations: 15X15 Decelerations: None Category: Category I Datetime: 07/28/2017 03:00 Labor Evaluation Frequency: none Monitor Mode: External Resting Tone [place]: Relaxed Heart Rate FHR Baseline Rate: 115 Monitor Mode: External US FHR Baseline Changes: No Baseline Change Variability: Moderate 6-25 bpm Accelerations: 15X15 Decelerations: Variable Category: Category II Datetime: 07/28/2017 02:00 Labor Evaluation Frequency: none Monitor Mode: External Resting Tone [place]: Relaxed Heart Rate FHR Baseline Rate: 130 Monitor Mode: External US FHR Baseline Changes: No Baseline Change Variability: Moderate 6-25 bpm Accelerations: 15X15 Decelerations: None Category: Category I Datetime: 07/28/2017 01:00 Labor Evaluation Frequency: none Monitor Mode: External Resting Tone [place]: Relaxed Heart Rate FHR Baseline Rate: 135 Monitor Mode: External US FHR Baseline Changes: No Baseline Change Variability: Moderate 6-25 bpm Accelerations: 15X15 Decelerations: None Category: Category I Datetime: 07/28/2017 00:04 Stage of : Antepartum Temperature Route: Oral Datetime: 07/28/2017 00:00 Labor Evaluation Frequency: none Monitor Mode: External Resting Tone [place]: Relaxed Heart Rate FHR Baseline Rate: 125 Monitor Mode: External US FHR Baseline Changes: No Baseline Change Variability: Moderate 6-25 bpm Accelerations: 15X15 Decelerations: None Category: Category I Datetime: 07/27/2017 23:00 Labor Evaluation Frequency: none Monitor Mode: External Resting Tone [place]: Relaxed Heart Rate FHR Baseline Rate: 120 Monitor Mode: External US FHR Baseline Changes: No Baseline Change Variability: Moderate 6-25 bpm Accelerations: 15X15 Decelerations: None Category: Category I Pain Assessment Pain Scale: 0 Pain Presence: None/Denies Datetime: 07/27/2017 22:00 Labor Evaluation Frequency: none Monitor Mode: External Resting Tone [place]: Relaxed Heart Rate FHR Baseline Rate: 120 Monitor Mode: External US FHR Baseline Changes: No Baseline Change Variability: Moderate 6-25 bpm Accelerations: 15X15 Decelerations: None Category: Category I Datetime: 07/27/2017 21:00 Labor Evaluation Frequency: x2 Monitor Mode: External Duration (sec)2399: 40-60 Quality: Mild Resting Tone [place]: Relaxed Contraction Comments: pt without complaint of uc pain. Heart Rate FHR Baseline Rate: 120 Monitor Mode: External US FHR Baseline Changes: No Baseline Change Variability: Moderate 6-25 bpm Accelerations: 15X15 Decelerations: None Category: Category I Pain Assessment Pain Scale: 0 Pain Presence: None/Denies Datetime: 07/27/2017 20:00 Labor Evaluation Frequency: none Monitor Mode: External Resting Tone [place]: Relaxed Heart Rate FHR Baseline Rate: 120 Monitor Mode: External US FHR Baseline Changes: No Baseline Change Variability: Moderate 6-25 bpm Accelerations: 15X15 Decelerations: None Category: Category I Datetime: 07/27/2017 19:52 Stage of : Antepartum Assessment Type: Ongoing Assessment Maternal Assessment Level of Consciousness: Fully Conscious DTR's/Clonus: DTRs 2+; No Clonus Headache: Denies Blurred Vision: No Respiratory Effort: Unlabored; Regular Rhythm; Equal Expansion Breath Sounds, Left: Clear and Equal Breath Sounds, Right: Clear and Equal Nausea/Vomiting: Denies RUQ Epigastric Pain: Denies Lower Extremities Edema: None Degree: None Upper Extremities Edema: None Degree: None Facial Edema: None Temperature Route: Oral Fall Risk Assessment History of Falling: (0) No Secondary Diagnosis: (0) No Ambulatory Aid: (0) Bedrest/Nurse Assist IV Therapy: (20) Yes Gait: (0) Normal/Bedrest/Immobile Mental Status: (0) Oriented to Own Ability Fall Score: 20 Fall Risk Score Definition: No Risk: No action required Datetime: 07/27/2017 18:01 Labor Evaluation Frequency: occasional irregular Monitor Mode: External Quality: Mild Resting Tone [place]: Relaxed Contraction Comments: pt denies feeling contractions Heart Rate FHR Baseline Rate: 120 Monitor Mode: External US FHR Baseline Changes: No Baseline Change Variability: Moderate 6-25 bpm Accelerations: 15X15 Decelerations: None Category: Category I Datetime: 07/27/2017 17:01 Labor Evaluation Frequency: 0 Monitor Mode: External Resting Tone [place]: Relaxed Heart Rate FHR Baseline Rate: 110 FHR Baseline Changes: No Baseline Change Variability: Moderate 6-25 bpm Accelerations: 15X15 Decelerations: None Category: Category I Datetime: 07/27/2017 15:59 Labor Evaluation Frequency: 1 Monitor Mode: External Duration (sec)2399: 60 Quality: Mild Resting Tone [place]: Relaxed Heart Rate FHR Baseline Rate: 125 Monitor Mode: External US FHR Baseline Changes: No Baseline Change Variability: Moderate 6-25 bpm Accelerations: 15X15 Decelerations: None Category: Category I Datetime: 07/27/2017 15:56 Pain Presence: None/Denies Datetime: 07/27/2017 15:39 Labor Evaluation Frequency: 0 Monitor Mode: External Resting Tone [place]: Relaxed Heart Rate FHR Baseline Rate: 120 Monitor Mode: External US FHR Baseline Changes: No Baseline Change Variability: Moderate 6-25 bpm Accelerations: 15X15 Decelerations: None Category: Category I Pain Presence: None/Denies Datetime: 07/27/2017 14:52 Labor Evaluation Frequency: 0 Monitor Mode: External Resting Tone [place]: Relaxed Heart Rate FHR Baseline Rate: 120 Monitor Mode: External US FHR Baseline Changes: No Baseline Change Variability: Moderate 6-25 bpm Accelerations: 15X15 Decelerations: None Category: Category I Pain Presence: None/Denies Datetime: 07/27/2017 14:35 Labor Evaluation Frequency: 0 Monitor Mode: External Resting Tone [place]: Relaxed Heart Rate FHR Baseline Rate: 115 Monitor Mode: External US FHR Baseline Changes: No Baseline Change Variability: Moderate 6-25 bpm Accelerations: 15X15 Decelerations: None Category: Category I Pain Presence: None/Denies Datetime: 07/27/2017 13:24 Labor Evaluation Frequency: 0 Monitor Mode: External Resting Tone [place]: Relaxed Heart Rate FHR Baseline Rate: 125 Monitor Mode: External US FHR Baseline Changes: No Baseline Change Variability: Moderate 6-25 bpm Accelerations: 15X15 Decelerations: None Category: Category I Datetime: 07/27/2017 11:20 Labor Evaluation Frequency: 3/hr Monitor Mode: External Duration (sec)2399: 40 Quality: Mild Resting Tone [place]: Relaxed Heart Rate FHR Baseline Rate: 110 Monitor Mode: External US FHR Baseline Changes: No Baseline Change Variability: Moderate 6-25 bpm Accelerations: 15X15 Decelerations: None Category: Category I Pain Presence: None/Denies Datetime: 07/27/2017 10:21 Labor Evaluation Frequency: 5/hr Monitor Mode: External Duration (sec)2399: 30-40 sec Quality: Mild Resting Tone [place]: Relaxed Contraction Comments: pt denies feeling contractions or cramping Heart Rate FHR Baseline Rate: 110 Monitor Mode: External US FHR Baseline Changes: No Baseline Change Variability: Moderate 6-25 bpm Accelerations: 15X15 Decelerations: None Category: Category I Pain Presence: None/Denies Datetime: 07/27/2017 09:24 Labor Evaluation Frequency: occasional Monitor Mode: External Resting Tone [place]: Relaxed Contraction Comments: pt does not feel contractions Heart Rate FHR Baseline Rate: 115 Monitor Mode: External US FHR Baseline Changes: No Baseline Change Variability: Moderate 6-25 bpm Accelerations: 15X15 Decelerations: None Category: Category I Datetime: 07/27/2017 08:05 Assessment Type: Ongoing Assessment Maternal Assessment Level of Consciousness: Fully Conscious DTR's/Clonus: DTRs 2+; No Clonus Headache: Denies Blurred Vision: No Respiratory Effort: Unlabored; Regular Rhythm; Equal Expansion Breath Sounds, Left: Clear and Equal Breath Sounds, Right: Clear and Equal Nausea/Vomiting: Denies RUQ Epigastric Pain: Denies Facial Edema: None Fall Risk Assessment History of Falling: (0) No Secondary Diagnosis: (0) No Ambulatory Aid: (0) Bedrest/Nurse Assist IV Therapy: (20) Yes Gait: (0) Normal/Bedrest/Immobile Mental Status: (0) Oriented to Own Ability Fall Score: 20 Fall Risk Score Definition: No Risk: No action required Datetime: 07/27/2017 08:02 Labor Evaluation Frequency: 6/hr Monitor Mode: External Quality: Mild Resting Tone [place]: Relaxed Contraction Comments: pt denies feeling contractions Heart Rate FHR Baseline Rate: 120 Monitor Mode: External US FHR Baseline Changes: No Baseline Change Variability: Moderate 6-25 bpm Accelerations: 15X15 Decelerations: None Category: Category I Pain Assessment Pain Scale: 3 Pain Presence: Constant Pain Location: Back Pain Relief Measures: Pain Medication Given Datetime: 07/27/2017 07:00 Stage of : Antepartum Labor Evaluation Frequency: X4 Monitor Mode: External Duration (sec)2399: 50-70 Quality: Mild Resting Tone [place]: Relaxed Heart Rate FHR Baseline Rate: 125 Monitor Mode: External US Variability: Moderate 6-25 bpm Accelerations: 15X15 Decelerations: None Category: Category I Datetime: 07/27/2017 06:03 Stage of : Antepartum Temperature Route: Oral Datetime: 07/27/2017 06:00 Stage of : Antepartum Labor Evaluation Frequency: 0 Monitor Mode: External Resting Tone [place]: Relaxed Heart Rate FHR Baseline Rate: 120 Monitor Mode: External US Variability: Moderate 6-25 bpm Accelerations: 15X15 Decelerations: None Category: Category I Pain Assessment Pain Scale: 3 Pain Presence: Constant Pain Type: Sharp Pain Location: Right Flank Pain Relief Measures: Comfort Measures Datetime: 07/27/2017 05:39 Monitor Mode: External Monitor Mode: External US Datetime: 07/27/2017 05:31 Stage of : Antepartum Datetime: 07/27/2017 05:00 Stage of : Antepartum Labor Evaluation Frequency: X4 Monitor Mode: External Duration (sec)2399: 40-60 Quality: Mild Resting Tone [place]: Relaxed Heart Rate FHR Baseline Rate: 125 Monitor Mode: External US Variability: Moderate 6-25 bpm Accelerations: 15X15 Decelerations: None Category: Category I Datetime: 07/27/2017 04:39 Monitor Mode: External US Datetime: 07/27/2017 04:31 Stage of : Antepartum Datetime: 07/27/2017 03:59 Stage of : Antepartum Labor Evaluation Frequency: 0 Monitor Mode: External Resting Tone [place]: Relaxed Heart Rate FHR Baseline Rate: 130 Monitor Mode: External US Variability: Moderate 6-25 bpm Accelerations: 15X15 Decelerations: None Category: Category I Datetime: 07/27/2017 03:37 Monitor Mode: External US Datetime: 07/27/2017 03:31 Monitor Mode: External US Datetime: 07/27/2017 03:17 Monitor Mode: External US Datetime: 07/27/2017 03:00 Stage of : Antepartum Labor Evaluation Frequency: OCCASIONAL Monitor Mode: External Duration (sec)2399: 40-50 Quality: Mild Resting Tone [place]: Relaxed Heart Rate FHR Baseline Rate: 125 Monitor Mode: External US Variability: Moderate 6-25 bpm Accelerations: 15X15 Decelerations: None Category: Category I Datetime: 07/27/2017 02:47 Monitor Mode: External Monitor Mode: External US Datetime: 07/27/2017 02:41 Stage of : Antepartum Datetime: 07/27/2017 02:03 Stage of : Antepartum Labor Evaluation Frequency: 2.5-10 Monitor Mode: External Duration (sec)2399: 40-60 Quality: Mild Resting Tone [place]: Relaxed Heart Rate FHR Baseline Rate: 135 Monitor Mode: External US Variability: Moderate 6-25 bpm Accelerations: 15X15 Decelerations: None Category: Category I Pain Assessment Pain Scale: 4 Pain Presence: Constant Pain Type: Sharp Pain Location: Right Flank Pain Relief Measures: Comfort Measures Datetime: 07/27/2017 01:08 Monitor Mode: External Monitor Mode: External US Datetime: 07/27/2017 01:03 Stage of : Antepartum Labor Evaluation Frequency: 2.5-10 Monitor Mode: External Duration (sec)2399: 40-80 Quality: Mild Resting Tone [place]: Relaxed Heart Rate FHR Baseline Rate: 130 Monitor Mode: External US Variability: Moderate 6-25 bpm Accelerations: 15X15 Decelerations: None Category: Category I Pain Assessment Pain Scale: 5 Pain Presence: Constant Pain Type: Sharp Pain Location: Right Flank Pain Goal: 0 Pain Relief Measures: Comfort Measures Datetime: 07/27/2017 00:26 Assessment Type: Admission Assessment Vaginal Bleeding: None Maternal Assessment Level of Consciousness: Fully Conscious DTR's/Clonus: DTRs 2+; No Clonus Headache: Denies Blurred Vision: No Respiratory Effort: Unlabored Breath Sounds, Left: Clear and Equal Breath Sounds, Right: Clear and Equal Nausea/Vomiting: Denies RUQ Epigastric Pain: Denies Lower Extremities Edema: None Degree: None Upper Extremities Edema: None Degree: None Facial Edema: None Fall Risk Assessment History of Falling: (0) No Secondary Diagnosis: (0) No Ambulatory Aid: (0) Bedrest/Nurse Assist IV Therapy: (0) No Gait: (0) Normal/Bedrest/Immobile Mental Status: (0) Oriented to Own Ability Fall Score: 0 Fall Risk Score Definition: No Risk: No action required Heart Rate FHR Baseline Rate: 130 Variability: Moderate 6-25 bpm Accelerations: 15X15 Decelerations: None Category: Category I Pain Assessment Pain Scale: 5 Pain Presence: Constant Pain Type: Sharp Pain Location: Back (Annotations: R FLANK PAIN) Pain Goal: 0 Datetime: 07/27/2017 00:02 Assessment Type: Ongoing Assessment Maternal Assessment Level of Consciousness: Fully Conscious DTR's/Clonus: DTRs 2+; No Clonus Headache: Denies Blurred Vision: No Respiratory Effort: Unlabored; Regular Rhythm; Equal Expansion Breath Sounds, Left: Clear and Equal Breath Sounds, Right: Clear and Equal Nausea/Vomiting: Denies RUQ Epigastric Pain: Denies Facial Edema: None Fall Risk Assessment History of Falling: (0) No Secondary Diagnosis: (0) No Ambulatory Aid: (0) Bedrest/Nurse Assist IV Therapy: (0) No Gait: (0) Normal/Bedrest/Immobile Mental Status: (0) Oriented to Own Ability Fall Score: 0 Fall Risk Score Definition: No Risk: No action required Datetime: 07/27/2017 00:00 Stage of : Antepartum Monitor Mode: External Monitor Mode: External US Datetime: 07/26/2017 21:25 Stage of : OB Triage Labor Evaluation Frequency: 2-5 Monitor Mode: External Quality: Mild Pattern: Normal: <= 5 Contractions in 10 Minutes Resting Tone [place]: Relaxed Heart Rate FHR Baseline Rate: 140 Monitor Mode: External US FHR Baseline Changes: No Baseline Change Variability: Moderate 6-25 bpm Accelerations: 15X15 Decelerations: None Category: Category I Vaginal Exam Dilatation (cms): 1.5 Effacement (%): 60 Station: -3 Membrane Status: Intact Vaginal Bleeding: None Cervix, Consistency: Moderate Cervix, Position: Midposition Datetime: 07/26/2017 20:55 Stage of : OB Triage Monitor Mode: External US Datetime: 07/26/2017 20:30 Time of Arrival: 07/26/2017 20:00 EGA: 35.5 Arrived By: Wheelchair Arrived From: Home Chief Complaint: c/o ucs Movement: Present Contractions: Irregular Rupture of Membranes: Denies Vaginal Bleeding: None Vaginal Discharge: Denies Recent Sexual Intercouse: Denies Abdominal Trauma: Not Applicable Patient Complaints: Contractions Initial Plan: EFM,SVE,UA Datetime: 07/26/2017 20:11 Stage of : OB Triage Maternal Assessment Level of Consciousness: Fully Conscious Headache: Denies Blurred Vision: No Respiratory Effort: Unlabored Nausea/Vomiting: Denies RUQ Epigastric Pain: Denies Facial Edema: None Labor Evaluation Frequency: placed Monitor Mode: External Resting Tone [place]: Relaxed Heart Rate FHR Baseline Rate: 150 Monitor Mode: External US Pain Assessment Pain Scale: 8 Pain Presence: Intermittent Pain Type: Contraction Pain Location: Abdomen Datetime: 07/24/2017 19:32 EGA: 35.3
--- NOTE | 2017-08-13 22:29 | PN ---
Triage Information Date/Time Reason for visit: Uterine contractions Weeks of Gestation 38+0 /Para 2/1 Diabetes: none Hypertention: none Additional information Pt reports normal FM, denies LOF or VB. States UCs started around 1300 and are quite painful. Objective Vital Signs Date Time Temp Pulse Resp B/P Pulse Ox O2 Delivery O2 Flow Rate FiO2 08/13/17 17:44 98.4 88 18 112/62 99 Room Air Heart Rate: 150's Heart Rate Comments moderate variability, +accels, 1 possible variable decel although tracing was interrupted. Contractions: < 5 Minutes Apart (irregular, at times >5min apart) Exam 50/-3, unchanged on repeat exam after 2hrs Results/Medications Imaging Results PROCEDURE: US biophysical profile. CLINICAL INDICATION: Labor. well-being. TECHNIQUE: Multiple sonographic images of the uterus were obtained. The images were reviewed on a PACS workstation. COMPARISON: No prior studies are available for comparison. FINDINGS: There is a single live intrauterine gestation. heart rate is 161 beats per minute. The position is cephalic. The placenta is posterior fundal, grade II. The YESSICA is 12.3 cm. Breathing Movement: 2 Gross Body Movement: 2 Tone: 2 Qualitative Amniotic Fluid Volume: 2 TOTAL: 8 IMPRESSION: 1. Single viable intrauterine gestation. 2. Biophysical profile = 8/8. 3. YESSICA = 12.3 cm. Disposition: Discharge Assessment/Plan Early term w/prodromal labor Reactive NST, normal BPP Offered pt therapeutic rest as pt requested pain meds-> Morphine 10mg IM and Compazine 10mg IM x1 administered Pt discharged home with partner who was driving. Strict labor, ROM and FKC precautions reviewed Questions answered to patient's satisfaction Pt to call and schedule an outpatient f/up visit with Dr. Horton's office. Return to triage LAINE Mckeon MD Aug 13, 2017 22:29
== END 2017-08-13 20:25 | disposition home or self-care (01) ==
LOC: L-D 17:09 → OBT 17:09
PROVIDERS: ATTEND Obstetrics & Gynecology
DX: O47.1 False labor at or after 37 completed weeks of gestation (principal); Z3A.38 38 weeks gestation of pregnancy
CPT/HCPCS: 76818; 96372; G0463; J0780; J2270

== ENCOUNTER 2017-08-20 08:41 | Inpatient (IN) | payer OTHER ==
[~2017-08-20] VITALS: Ht 154.9 cm; Wt 76.2 kg
[2017-08-20 09:20] VITALS: BP 106/60; PULSE 99; Ht 154.9 cm; Wt 76.2 kg
[2017-08-20] MEDS ORDERED: LIDOCAINE 1% (MPF) 30 ML INJ INJ PRN (09:30)
[2017-08-20] MEDS ORDERED: BUTORPHANOL 2 MG INJ IV PRN ×2 (09:30)
[2017-08-20] MEDS ORDERED: MISOPROSTOL 200 MCG TAB PR PRN (09:30)
[2017-08-20] MEDS ORDERED: METHYLERGONOVINE 0.2 MG INJ IM PRN (09:30)
[2017-08-20] MEDS ORDERED: CARBOPROST 250 MCG INJ IM PRN (09:30)
[2017-08-20] MEDS ORDERED: OXYTOCIN 30 UNITS/LR 500 ML IV PRN (09:30)
[2017-08-20] MEDS ORDERED: OXYTOCIN 30 UNITS/LR 500 ML IV SCH ×4 (09:30→17:14)
[2017-08-20] MEDS ORDERED: LACTATED RINGER'S 1,000 ML IV PRN (09:30)
[2017-08-20 10:08] LABS: BASOPHILS % 0.2 % (0.0-2.0); EOSINOPHILS # 0.1 10^3/ul (0.0-0.5); HEMATOCRIT 33.1 % (37.0-47.0); LYMPHOCYTES # 3.1 10^3/ul (0.8-2.9); LYMPHOCYTES % 22.5 % (15.0-51.0); MEAN CORPUSCULAR HEMOGLOBIN 27.6 pg (29.0-33.0); MEAN CORPUSCULAR HGB CONC 33.2 g/dl (32.0-37.0); MEAN PLATELET VOLUME 11.6 fl (7.4-10.4); MONOCYTE # 0.7 10^3/ul (0.3-0.9); MONOCYTES % 5.3 % (0.0-11.0); NEUTROPHIL # 9.7 10^3/ul (1.6-7.5); NEUTROPHILS % 69.5 % (39.0-77.0); PLATELET COUNT 253 10^3/UL (140-415); RED BLOOD COUNT 3.99 10^6/ul (4.20-5.40); RED CELL DISTRIBUTION WIDTH 14.3 % (11.5-14.5); WHITE BLOOD COUNT 13.9 10^3/ul (4.8-10.8)
[2017-08-20 10:40] LABS: INR 0.95; PARTIAL THROMBOPLASTIN TIME 27.1 Sec (25.0-35.0); PROTIME 12.7 Sec (12.2-14.2)
[2017-08-20] MEDS ORDERED: FENTAnyl 2MCG/ML-ROPIV 0.2% 100 ML ONE (11:43)
[2017-08-20] MEDS: LACTATED RINGER'S 1,000 ML IV SCH ×2 (11:53→12:44)
--- NOTE | 2017-08-20 16:13 | HP ---
Date/Time of Note Date/Time of Note DATE: 08/20/17 TIME: 16:06 OB - History Hx of Present Free Text/Dictation 21 years old female 2 para 1 EDC August 25 admitted to [facility] in labor pelvic examination on admission cervix 3 cm dilated 50% effaced vertex at -2 station contractions 3-5 minutes she was transferred from triage unit to the labor and delivery room for expectant management for vaginal. Estimated Due Date: Aug 25, 2017 : 2 Para: 1 Care: Good Care Ultrasounds: Normal mid trimester US Obstetrical Complications: None Past Family/Social History * Past Medical, Surgical, Family and Obstetric Histories reviewed from chart. Rubella: immune RPR/VDRL: Negative GBS Status: Negative HBsAG: Negative OB Admission Exam Vital Signs Vital Signs Vital Signs Date Time Temp Pulse Resp B/P Pulse Ox O2 Delivery O2 Flow Rate FiO2 08/20/17 09:20 98.2 99 106/60 Physical Exam HEENT: WNL Lungs: Clear, Equal Abdomen: WNL Extremities: Normal Reflexes: Normal Cervical Dilatation: 3cm Effacement: 50% Station: -2 Membranes: Intact Heart Rate: 130's Decelerations: No Decelerations Varibility: Moderate Contractions on Admission: < 5 Minutes Apart Intensity: Moderate Last 72 hours Lab Results CBC & BMP 08/20/17 09:50 OB Assessment/Plan Reason for admission: active labor Induction Method: other (21 years old female 2 para 1 admitted to [facility] in labor pelvic examination on admission cervix 3 cm dilated 50% effaced vertex at -2 station patient transferred from triage unit to L&D expecting management for vaginal delivery) CINDI TONY MD Aug 20, 2017 16:13
--- NOTE | 2017-08-20 16:17 | LDN ---
Date/Time of Note Date/Time of Note DATE: 08/20/17 TIME: 16:13 Delivery Summary Normal spontaneous vaginal delivery of a baby girl from OA position with nuchal cord 1 shoulders delivered without any difficulties rest of the baby's body followed placenta spontaneous expulsion inspected complete, patient sustained small first-degree perineal laceration which repaired with 2-0 chromic catgut estimated blood loss 250-300 cc Weeks of Gestation 39 weeks 2 days Placenta Delivered: Spontaneously Meconium: none Episiotomy: No Laceration repair: First-degree perineal laceration repaired with 2-0 chromic catgut Anesthesia type: Epidural Estimated blood loss: 250 Sponge & Needle done & correct: Yes All needle counts correct: Yes Any foreign bodies felt in the: No Problems: Delivery Information Sex Infant Sex: female Apgars 1 Minute: 9 5 Minute: 9 Suctioning Nose & mouth suctioned at reyna: Yes Delee suction performed: No Umbilical Cord Umbilical cord with: 3 Vessels Cord presentations: nuchal cord Cord Blood was obtained: Yes CINDI TONY MD Aug 20, 2017 16:17
[2017-08-20] MEDS ORDERED: ONDANSETRON 4 MG INJ IV PRN (17:30)
[2017-08-20] MEDS ORDERED: OXYCODONE/ASPIRIN (4.88/325) TAB PO PRN ×2 (17:30)
[2017-08-20] MEDS ORDERED: ACETAMINOPHEN 325 MG TAB PO PRN (17:30)
[2017-08-20] MEDS ORDERED: FENTAnyl 2MCG/ML-ROPIV 0.2% 100 ML BAG EPI SCH (17:30)
[2017-08-20] MEDS ORDERED: LANOLIN 7 GM TUBE TOP PRN (17:30)
[2017-08-20] MEDS ORDERED: DIBUCAINE 1% 30 GM OINT PR PRN (17:30)
[2017-08-20] MEDS ORDERED: HYDROCODONE/APAP (5/325) TAB PO PRN (17:30)
[2017-08-20] MEDS ORDERED: NALOXONE (0.4 MG/ML) INJ IV PRN (17:30)
[2017-08-20 18:00] VITALS: BP 116/57; PULSE 78; RESP 19
[2017-08-20] MEDS: WITCH HAZEL/GLYCERIN PAD PR PRN (18:21)
[2017-08-20] MEDS: BENZOCAINE 20% 56 ML SPRAY TOP PRN (18:21)
[2017-08-20] MEDS: IBUPROFEN 600 MG TAB PO SCH (18:21)
[2017-08-20 18:30] VITALS: BP 114/59; PULSE 77; RESP 17
[2017-08-20] MEDS ORDERED: INFLUENZA VIRUS VACCINE 0.5 ML SYG IM* ONE (19:00)
[2017-08-20 20:00] VITALS: BP 111/55; PULSE 71; RESP 18
[2017-08-20] MEDS: SENNA/DOCUSATE NA (8.6MG/50MG) TAB PO SCH (21:17)
[2017-08-20] MEDS: HYDROCODONE/APAP (5/325) TAB PO PRN (21:34)
[2017-08-21] VITALS: BP 102/63; PULSE 72; RESP 17
[2017-08-21] MEDS: IBUPROFEN 600 MG TAB PO SCH ×5 (00:03→23:53)
[2017-08-21 04:00] VITALS: BP 102/56; PULSE 67; RESP 17
[2017-08-21 08:00] VITALS: BP 105/58; PULSE 77; RESP 18
[2017-08-21] MEDS: SENNA/DOCUSATE NA (8.6MG/50MG) TAB PO SCH ×2 (08:43→21:35)
[2017-08-21 10:08] LABS: BASOPHILS % 0.2 % (0.0-2.0); EOSINOPHILS # 0.1 10^3/ul (0.0-0.5); HEMATOCRIT 29.2 % (37.0-47.0); HEMOGLOBIN 9.4 g/dl (12.0-16.0); LYMPHOCYTES % 21.6 % (15.0-51.0); MEAN CORPUSCULAR HEMOGLOBIN 27.2 pg (29.0-33.0); MEAN CORPUSCULAR HGB CONC 32.2 g/dl (32.0-37.0); MEAN CORPUSCULAR VOLUME 84.6 fl (82.0-101.0); MEAN PLATELET VOLUME 12.1 fl (7.4-10.4); MONOCYTE # 0.7 10^3/ul (0.3-0.9); MONOCYTES % 5.1 % (0.0-11.0); NEUTROPHIL # 9.9 10^3/ul (1.6-7.5); PLATELET COUNT 228 10^3/UL (140-415); RED BLOOD COUNT 3.45 10^6/ul (4.20-5.40); RED CELL DISTRIBUTION WIDTH 14.8 % (11.5-14.5)
[2017-08-21 12:00] VITALS: BP 93/44; PULSE 69; RESP 17
[2017-08-21 16:00] VITALS: BP 107/52; PULSE 82; RESP 18
--- NOTE | 2017-08-21 19:29 | PN ---
Date/Time of Note Date/Time of Note DATE: 08/21/17 TIME: 19:27 OB Subjective Subjective Subjective Post day 1 Patient is doing well, Ambulatory She is afebrile Abdomen is soft , Fundus is firm Moderate amount of lochia Breasts are soft, Nipples are intact No calf tenderness. Perineum is healing well. Laboratory Tests Test 08/21/17 09:22 White Blood Count 14.010^3/ul Red Blood Count 3.4510^6/ul Hemoglobin 9.4g/dl Hematocrit 29.2% Mean Corpuscular Volume 84.6fl Mean Corpuscular Hemoglobin 27.2pg Mean Corpuscular Hemoglobin Concent 32.2g/dl Red Cell Distribution Width 14.8% Platelet Count 87144^3/UL Mean Platelet Volume 12.1fl Neutrophils % 71.0% Lymphocytes % 21.6% Monocytes % 5.1% Eosinophils % 1.0% Basophils % 0.2% Nucleated Red Blood Cells % 0.0/100WBC Neutrophils # 9.910^3/ul Lymphocytes # 3.010^3/ul Monocytes # 0.710^3/ul Eosinophils # 0.110^3/ul Basophils # 0.010^3/ul Nucleated Red Blood Cells # 0.010^3/ul Current Medications Medications (Trade) Dose Ordered Sig/Christen Route PRN Reason Start Time Stop Time Status Last Admin Dose Admin Lactated Ringer's 1,000 ml @ 125 mls/hr Q8H IV 08/20/17 09:21 08/20/17 17:19 DC 08/20/17 12:44 Oxytocin/Lactated Ringer's 500 ml @ 0 mls/hr TITRATE IV 08/20/17 09:30 08/20/17 17:19 DC 08/20/17 12:19 Butorphanol Tartrate (Stadol) 1 mg Q2H PRN IV PAIN 08/20/17 09:30 08/20/17 17:19 DC Butorphanol Tartrate (Stadol) 2 mg Q2H PRN IV PAIN 08/20/17 09:30 08/20/17 17:19 DC Lidocaine 30 ml 30 ml ONCE PRN INJ EPISIOTOMY/TEARING 08/20/17 09:30 08/20/17 17:19 DC Oxytocin/Lactated Ringer's 500 ml @ 125 mls/hr ONCE -MAY REPEAT X1 IV 08/20/17 09:30 08/20/17 17:19 DC 08/20/17 16:27 Oxytocin/Lactated Ringer's 500 ml @ 125 mls/hr ONCE IV 08/20/17 09:30 08/20/17 17:19 DC Lactated Ringer's 1,000 ml @ 2,000 mls/hr Q30M PRN IV PRE-EPIDURAL BOLUS 08/20/17 09:30 08/20/17 17:19 DC Oxytocin/Lactated Ringer's 500 ml @ 0 mls/hr ONCE PRN IV For Hemorrhage Management 08/20/17 09:30 08/20/17 17:19 DC Methylergonovine Maleate (Methergine) 0.2 mg ONCE PRN IM VAGINAL BLEEDING 08/20/17 09:30 08/20/17 17:19 DC Carboprost Tromethamine (Hemabate) 250 mcg ONCE PRN IM VAGINAL BLEEDING 08/20/17 09:30 08/20/17 17:19 DC Misoprostol 1000 mcg 1,000 mcg ONCE PRN ID VAGINAL BLEEDING 08/20/17 09:30 08/20/17 17:19 DC Fentanyl/ Ropivacaine 100 ml @ ud STK-MED ONCE .ROUTE 08/20/17 11:43 08/20/17 11:44 DC Naloxone HCl (Narcan) 0.2 mg Q2M PRN IV FOR RESP RATE 8 OR LESS 08/20/17 17:30 08/20/17 17:30 DC Fentanyl/ Ropivacaine 100 ml 100 ml EPIDURAL (PCEA) EPI 08/20/17 17:30 08/20/17 17:30 DC Oxytocin/Lactated Ringer's 500 ml @ 125 mls/hr Q4H IV 08/20/17 17:14 08/21/17 01:13 DC 08/20/17 21:37 Ibuprofen (Motrin) 600 mg Q6 PO 08/20/17 18:00 08/21/17 17:59 Acetaminophen (Tylenol Tab) 650 mg Q4H PRN PO PAIN LEVEL 1-5 08/20/17 17:30 Acetaminophen/ Hydrocodone Bitart ([place] (5/325)) 1 tab Q4H PRN PO PAIN LEVEL 1-5 08/20/17 17:30 08/20/17 21:34 Acetaminophen/ Hydrocodone Bitart ([place] (5/325)) 2 tab Q4H PRN PO PAIN LEVEL 6-10 08/20/17 17:30 Oxycodone/Aspirin (Percodan) 1 tab Q3H PRN PO PAIN LEVEL 1-5 08/20/17 17:30 Oxycodone/Aspirin (Percodan) 2 tab Q3H PRN PO PAIN LEVEL 6-10 08/20/17 17:30 Ondansetron HCl (Zofran Inj) 4 mg Q6H PRN IV NAUSEA AND/OR VOMITING 08/20/17 17:30 Senna/Docusate Sodium (Senokot-S) 1 tab BID PO 08/20/17 21:00 08/21/17 08:43 Witch Maricarmen/ Glycerin (Tucks Pads) 1 pad BEDSIDE MEDICATION PRN ID HEMORRHOID/EPISIOTMY PAIN 08/20/17 17:30 08/20/17 18:21 Benzocaine (Dermoplast [place]) 1 spray BEDSIDE MEDICATION PRN TOP HEMORRHOID/EPISIOTMY PAIN 08/20/17 17:30 08/20/17 18:21 Dibucaine (Nupercainal) 1 applic BEDSIDE MEDICATION PRN ID HEMORRHOID/EPISIOTMY PAIN 08/20/17 17:30 Lanolin ([id number]) 1 applic BEDSIDE MEDICATION PRN TOP BEDSIDE FOR SPIKE TO NIPPLES 08/20/17 17:30 08/20/17 18:21 Measles/Mumps/ Rubella Vaccine Live (Mmr Ii Vaccine) 0.5 ml ONCE ONCE SC* 08/22/17 09:00 08/22/17 09:01 Influenza Virus Vaccine (Fluzone) 0.5 ml ONCE ONCE IM* 08/20/17 19:00 08/20/17 19:06 DC 08/21/17 16:59 Breast feeding the new born. MATT GAMA MD Aug 21, 2017 19:29
[2017-08-21 20:00] VITALS: BP 97/62; PULSE 87; RESP 17
[2017-08-22] MEDS: HYDROCODONE/APAP (5/325) TAB PO PRN (01:38)
[2017-08-22 04:00] VITALS: BP 107/61; PULSE 91; RESP 20
[2017-08-22] MEDS: IBUPROFEN 600 MG TAB PO SCH ×2 (05:33→12:11)
[2017-08-22 07:45] VITALS: BP 93/51; PULSE 71; RESP 16
[2017-08-22] MEDS ORDERED: MEASLES,MUMPS,RUBELLA VACCINE INJ SC* ONE (09:00)
[2017-08-22] MEDS: SENNA/DOCUSATE NA (8.6MG/50MG) TAB PO SCH (09:19)
[2017-08-22] MEDS ORDERED: DIPHTH/TET/ACEL PERTUSS (ADULT) 0.5 ML VIAL IM* ONE (13:30)
[2017-08-22] MEDS: WITCH HAZEL/GLYCERIN PAD PR PRN (15:42)
[2017-08-22] MEDS: BENZOCAINE 20% 56 ML SPRAY TOP PRN (15:42)
--- NOTE | 2017-08-23 20:30 | DS ---
Date/Time of Note Date/Time of Note DATE: 08/23/17 TIME: 20:26 Obstetrical Discharge Record Final Diagnosis Final Diagnosis: Term delivered Vaginal Delivery Obstetrical Delivery: Spontaneous Condition on Discharge Physical Assessment Last Vitals: August 22, 2017 Voiding: Yes Bowel Movement: Yes Breast: Soft, non-tender Fundus: Firm Abdomen and Incision: Will give TDAP vaccine before discharge Episiotomy: Laboratory Tests Test 08/23/17 11:46 Lab Scanned Report REFERENCE [id number] Current Medications Medications (Trade) Dose Ordered Sig/Christen Route PRN Reason Start Time Stop Time Status Last Admin Dose Admin Lactated Ringer's 1,000 ml @ 125 mls/hr Q8H IV 08/20/17 09:21 08/20/17 17:19 DC 08/20/17 12:44 Oxytocin/Lactated Ringer's 500 ml @ 0 mls/hr TITRATE IV 08/20/17 09:30 08/20/17 17:19 DC 08/20/17 12:19 Butorphanol Tartrate (Stadol) 1 mg Q2H PRN IV PAIN 08/20/17 09:30 08/20/17 17:19 DC Butorphanol Tartrate (Stadol) 2 mg Q2H PRN IV PAIN 08/20/17 09:30 08/20/17 17:19 DC Lidocaine 30 ml 30 ml ONCE PRN INJ EPISIOTOMY/TEARING 08/20/17 09:30 08/20/17 17:19 DC Oxytocin/Lactated Ringer's 500 ml @ 125 mls/hr ONCE -MAY REPEAT X1 IV 08/20/17 09:30 08/20/17 17:19 DC 08/20/17 16:27 Oxytocin/Lactated Ringer's 500 ml @ 125 mls/hr ONCE IV 08/20/17 09:30 08/20/17 17:19 DC Lactated Ringer's 1,000 ml @ 2,000 mls/hr Q30M PRN IV PRE-EPIDURAL BOLUS 08/20/17 09:30 08/20/17 17:19 DC Oxytocin/Lactated Ringer's 500 ml @ 0 mls/hr ONCE PRN IV For Hemorrhage Management 08/20/17 09:30 08/20/17 17:19 DC Methylergonovine Maleate (Methergine) 0.2 mg ONCE PRN IM VAGINAL BLEEDING 08/20/17 09:30 08/20/17 17:19 DC Carboprost Tromethamine (Hemabate) 250 mcg ONCE PRN IM VAGINAL BLEEDING 08/20/17 09:30 08/20/17 17:19 DC Misoprostol 1000 mcg 1,[address] VAGINAL BLEEDING 08/20/17 09:30 08/20/17 17:19 DC Fentanyl/ Ropivacaine 100 ml @ ud STK-MED ONCE .ROUTE 08/20/17 11:43 08/20/17 11:44 DC Naloxone HCl (Narcan) 0.2 mg Q2M PRN IV FOR RESP RATE 8 OR LESS 08/20/17 17:30 08/20/17 17:30 DC Fentanyl/ Ropivacaine 100 ml 100 ml EPIDURAL (PCEA) EPI 08/20/17 17:30 08/20/17 17:30 DC Oxytocin/Lactated Ringer's 500 ml @ 125 mls/hr Q4H IV 08/20/17 17:14 08/21/17 01:13 DC 08/20/17 21:37 Ibuprofen (Motrin) 600 mg Q6 PO 08/20/17 18:00 08/22/17 17:20 DC 08/22/17 12:11 Acetaminophen (Tylenol Tab) 650 mg Q4H PRN PO PAIN LEVEL 1-5 08/20/17 17:30 08/22/17 17:20 DC Acetaminophen/ Hydrocodone Bitart ([place] (5/325)) 1 tab Q4H PRN PO PAIN LEVEL 1-5 08/20/17 17:30 08/22/17 17:20 DC 08/22/17 01:38 Acetaminophen/ Hydrocodone Bitart ([place] (5/325)) 2 tab Q4H PRN PO PAIN LEVEL 6-10 08/20/17 17:30 08/22/17 17:20 DC Oxycodone/Aspirin (Percodan) 1 tab Q3H PRN PO PAIN LEVEL 1-5 08/20/17 17:30 08/22/17 17:20 DC Oxycodone/Aspirin (Percodan) 2 tab Q3H PRN PO PAIN LEVEL 6-10 08/20/17 17:30 08/22/17 17:20 DC Ondansetron HCl (Zofran Inj) 4 mg Q6H PRN IV NAUSEA AND/OR VOMITING 08/20/17 17:30 08/22/17 17:20 DC Senna/Docusate Sodium (Senokot-S) 1 tab BID PO 08/20/17 21:00 08/22/17 17:20 DC 08/22/17 09:19 Witch Maricarmen/ Glycerin (Tucks Pads) [address] MED[address] PRN CT HEMORRHOID/EPISIOTMY PAIN 08/20/17 17:30 08/22/17 17:20 DC 08/22/17 15:42 Benzocaine (Dermoplast [place]) 1 spray BEDSIDE MEDICATION PRN TOP HEMORRHOID/EPISIOTMY PAIN 08/20/17 17:30 08/22/17 17:20 DC 08/22/17 15:42 Dibucaine (Nupercainal) 1 applic BEDSIDE MEDICATION PRN CT HEMORRHOID/EPISIOTMY PAIN 08/20/17 17:30 08/22/17 17:20 DC Lanolin ([id number]) 1 applic BEDSIDE MEDICATION PRN TOP BEDSIDE FOR SPIKE TO NIPPLES 08/20/17 17:30 08/22/17 17:20 DC 08/20/17 18:21 Measles/Mumps/ Rubella Vaccine Live (Mmr Ii Vaccine) 0.5 ml ONCE ONCE SC* 08/22/17 09:00 08/22/17 09:01 DC Influenza Virus Vaccine (Fluzone) 0.5 ml ONCE ONCE IM* 08/20/17 19:00 08/20/17 19:06 DC 08/21/17 16:59 Diphtheria/ Tetanus/Acell Pertussis (Adacel) 0.5 ml ONCE ONCE IM* 08/22/17 13:30 08/22/17 13:31 DC 08/22/17 14:29 Calf Tenderness: No Patient Condition: Good MATT GAMA MD Aug 23, 2017 20:30
== END 2017-08-22 17:19 | disposition home or self-care (01) | DRG 775 ==
LOC: OBT 08:41 → L-D 08:41 → OBT 09:28 → PP1 17:57
PROVIDERS: ADMIT Obstetrics & Gynecology; ATTEND Obstetrics & Gynecology
PROC: 10E0XZZ Delivery of Products of Conception, External Approach (ICD-10-PCS; principal; 2017-08-20)
PROC: 0KQM0ZZ Repair Perineum Muscle, Open Approach (ICD-10-PCS; 2017-08-20)
PROC: 3E033VJ Introduction of Other Hormone into Peripheral Vein, Percutaneous Approach (ICD-10-PCS; 2017-08-20)
PROC: 3E00X4Z Introduction of Serum, Toxoid and Vaccine into Skin and Mucous Membranes, External Approach (ICD-10-PCS; 2017-08-22)
DX: O70.0 First degree perineal laceration during delivery (principal); Z37.0 Single live birth; O69.81X0 Labor and delivery complicated by cord around neck, without compression, not applicable or unspecified; Z3A.39 39 weeks gestation of pregnancy; Z23 Encounter for immunization
CPT/HCPCS: 62319; 85025; 85610; 85730; 86592; 86900; 86901; 87340; 90686; 90715; 99464; G0463; J2590; J3010; J7120